=== PATIENT | male | born 1955 | race Caucasian/White ===

== ENCOUNTER → 2018-12-19 08:01 | Outpatient (CLI) | payer OTHER, SELFPAY ==
--- NOTE | 2018-12-19 10:28 | NEURO ---
NCS and/or EMG Patient Report Ordering Doctor: Asad Nash DATE OF SERVICE: 12/19/18 This is a right upper extremity EMG and nerve conduction study performed on this 63-year-old male with numbness and tingling in his hand. The symptoms have been present for approximately 2 years, denies specific digits involved. There is a history of neck injury. Right upper extremity sensory and motor nerve conduction studies performed. The median motor and sensory distal latency is mildly prolonged with preservation of amplitudes and conduction velocities. The ulnar motor and sensory and radial sensory responses are normal. The median and ulnar F-wave latencies are preserved. Right upper extremity needle electromyography is performed. Muscles evaluate included the first dorsal osseous, abductor pollicis brevis, brachioradialis, biceps, triceps and deltoid muscles. All muscles demonstrated normal insertional activity with absence of pathologic spontaneous activity and absence of motor unit fibrillation potentials with the exception of the abductor pollicis brevis which did demonstrate large motor units. Impression: Abnormal electrophysiologic study of the right upper extremity consistent with mild carpal tunnel syndrome at the wrist. Dictated using [employer] software, not proofread
== END ==
PROVIDERS: Family Provider Family Medicine; PCP Family Medicine; Referring Provider Family Medicine; Visit Provider Family Medicine
DX: R20.0 Anesthesia of skin (principal)
CPT/HCPCS: 95886; 95909